=== PATIENT | male | born 1965 | race Caucasian/White ===

== ENCOUNTER 2023-08-15 19:47 | Emergency (ER) | payer OTHER, SELFPAY ==
[2023-08-15 19:53] VITALS: BP 130/89
[2023-08-15 20:15] LABS: % Basophils 0.7 % (0-2); % Eosinophils 1.7 % (0-6); % Immature Granulocytes 0.3 % (0-0.5); % Lymphocytes 24.6 % (20.5-51.1); % Monocytes 7.8 % (1.7-9.3); % Neutrophils 64.9 % (42.2-75.2); Absolute Basophils 0.1 10^3/uL (0-0.2); Absolute Eosinophils 0.1 10^3/uL (0-0.7); Absolute Lymphocytes 1.7 10^3/uL (1.2-3.4); Absolute Monocytes 0.6 10^3/uL (0.1-0.6); Absolute Neutrophils 4.6 10^3/uL (1.4-6.5); Hematocrit 42.3 % (39.0-52.0); Hemoglobin 14.4 g/dL (13.0-18.0); Mean Corpuscular Hgb 28.5 pg (27.0-31.0); Mean Corpuscular Volume 83.6 fL (80.0-94.0); Mean Platelet Volume 9.1 fL (7.4-10.4); Nucleated Red Blood Cells % 0 % (-); Platelet Count 258 10^3/uL (130-400); Red Blood Cell Count 5.06 10^6/uL (4.70-6.10); Red Cell Dist. Width 14.6 % (11.5-14.5); White Blood Cell Count 7.1 10^3/uL (4.8-10.8)
[2023-08-15 20:28] LABS: ALT (SGPT) 15 U/L (0-50); AST (SGOT) 26 U/L (17-59); Albumin 4.5 g/dl (3.5-5.0); Alkaline Phosphatase 78 U/L (38-126); Blood Urea Nitrogen 29 mg/dl (9-20); Calcium 9.8 mg/dl (8.4-10.2); Carbon Dioxide 25 mmol/L (22-30); Chloride 108 mmol/L (98-107); Glucose 130 mg/dl (70-99); Potassium 5.3 mmol/L (3.5-5.1); Sodium 140 mmol/L (135-145); Total Bilirubin 0.9 mg/dl (0.2-1.3); Total Protein 7.5 g/dl (6.3-8.2); eGFR > 60.00
[2023-08-15 20:40] LABS: NT-proBNP 80.3 pg/ml; Troponin I < 0.012 ng/ml
--- NOTE | 2023-08-15 21:05 | ED.GENMED ---
History of Present Illness
General
Chief Complaint: Breathing Problem
Time Seen by Provider: 08/15/23 21:05
Travel History
Have you had any contact with someone who has COVID-19?: No
Do you have any symptoms of coronavirus? Fever > 100 degrees, chills, cough, shortness of breath, sore throat, loss of taste or smell, muscle aches, or headache?: No
History of Present Illness
History of Present Illness:
HPI: Patient presents with sensation that he could not breathe earlier after eating a lot of food. Family members at bedside indicate that it was a massive amount of food 'enough for 10 people'. He was feeling full in his abdomen then developed
shortness of breath and had some dizziness which concerned him enough to come here. While in the waiting room, he burped and overall felt significantly improved and wanted to leave.
EXAM:
GENERAL: Well appearing in no distress, minimally hypertensive, room air sats are normal
HEENT: Moist oral mucosa
CARDIOVASCULAR: No murmurs, normal heart rate, regular rhythm, No chest wall tenderness
PULMONARY: No respiratory distress, breath sounds are clear and equal
ABDOMEN: Soft with no peritoneal signs, no tenderness
NEUROLOGIC: Excellent strength all extremities, no coordination deficits, finger-nose testing normal
PSYCHIATRIC: Appropriate mental status, normal insight and judgement
EXTREMITIES: Nontender, no edema, moves all extremities equally
SKIN: No rash, no lesions
TIME OF INITIAL ENCOUNTER: 9:10 PM
NUMBER AND COMPLEXITY OF PROBLEMS ADDRESSED AT THE ENCOUNTER
� Chronic conditions affecting care: GERD no longer on Zantac
� Acute Exacerbation and/or Progression of Chronic Illness: This is an acute problem
� Differential Diagnosis includes: Binge overeating, ACS very unlikely, GERD exacerbate
AMOUNT AND/OR COMPLEXITY OF DATA TO BE REVIEWED AND ANALYZED
� I performed an independent evaluation of and my interpretation is:
EKG: EKG shows a sinus rhythm rate of 57, no acute ST abnormality, no old to compare
CT:
X-rays:
Laboratory Studies: CBC normal, potassium minimally elevated at 5.3 but creatinine normal, troponin negative, BNP unremarkable.
Other:
� Review of other/old records: Chest x-ray from 2019 was unremarkable
� Clinical information was obtained by an independent historian: I spoke to family members at bedside
� Prescriptions/Medications Considered but not given:
� Further testing considered but not performed:
RISK OF COMPLICATIONS AND/OR MORBIDITY OR MORTALITY OF PATIENT MANAGEMENT
� Social determinants of health affecting care: Lives at home
� Discussion with other providers:
� Escalation of care including admission/observation vs risk of discharge considered: Shortly after arrival, the patient spontaneously felt improved. I did perform a medical screening examination and blood work is unremarkable.
He has virtually no symptoms of time of discharge
Past History
Past History
ED Past Medical History: None
ED Past Surgical History: None
Social History
Tobacco: Non-smoker
Alcohol: None
Personal:
Living: with family
Employment: Employed
Phy Exam
Physical Exam
Physical Exam:
See HPI
Scores
Heart Failure Risk
Heart Failure Risk Score: Not Applicable
Course
Orders/Labs/Results
Orders:
Orders
08/15/23 20:00
Electrocardiogram (*1) Urgent
Reason for Study: Other
Other Reason for Exam: Respiratory Distress
EKG- Treatment ONCE
08/15/23 20:08
Complete Blood Count/With Diff Urgent
Comprehensive Metabolic Panel Urgent
NT-proBNP Urgent
Troponin I Urgent
Abnormal Lab Results
08/15/23
20:08
RDW 14.6 H %
(11.5-14.5)
Potassium 5.3 H mmol/L
(3.5-5.1)
Chloride 108 H mmol/L
(98-107)
BUN 29 H mg/dl
(9-20)
Glucose 130 H mg/dl
(70-99)
08/15/23 20:08
08/15/23 20:08
Vital Signs
Initial and Last Documented VS:
Initial Vital Signs
Temp Pulse Resp BP Pulse Ox
98.1 F 69 24 130/89 99
08/15/23 19:53 08/15/23 19:53 08/15/23 19:53 08/15/23 19:53 08/15/23 19:53
Last Documented Vital Signs
Temp Pulse Resp BP Pulse Ox
98.1 F 69 24 130/89 99
08/15/23 19:53 08/15/23 19:53 08/15/23 19:53 08/15/23 19:53 08/15/23 19:53
*Critical Care Note
Total Time (30-74mins, 75-104mins- exclusive of procedures): Not Applicable
ED Attending Note
-
Portions of this chart may have been created with voice recognition software.� Occasional wrong word or��sound alike� substitutions may have occurred due to the inherent limitations of voice recognition software.
Discharge Plan
Departure
Patient Disposition: Home (Routine Discharge)
Date of Disposition: 08/15/23
Time of Disposition: 21:11
Patient with high blood pressure during this ER visit?: Yes
Discharge Problem:
Shortness of breath
Instructions: Shortness of Breath (Dyspnea) (DC)
Prescriptions:
No Action
No Current Medications
0
Activity Restrictions/Additional Instructions:
Blood work is unremarkable. EKG appears normal. Return here if worse. Consider 2-week course of [id number] omeprazole to help with stomach acid.
Interventions
Interventions:
*Risk Screen - Suicide Last Done: 08/15/23 19:53
*General Assessment Last Done: 08/15/23 21:13
*Neglect/Abuse Screening Last Done: 08/15/23 19:53
ED- Fall Risk Assessment Last Done: 08/15/23 19:53
*ED COVID-19 Vaccine History Last Done: 08/15/23 19:53
ED- Cardiac Assessment Last Done: 08/15/23 21:13
ED- Pulmonary Assessment Last Done: 08/15/23 21:13
Discharge Date and Time
Print Language: INDIAN
[2023-08-15 21:12] VITALS: BP 135/94; BMI 26.5
== END 2023-08-15 21:35 | disposition home or self-care (01) ==
LOC: EMR 19:47
PROVIDERS: EMERGENCY PHYSICIAN Emergency Medicine; FAMILY PHYSICIAN Family Medicine
DX: R06.02 Shortness of breath (principal); R42 Dizziness and giddiness; R03.0 Elevated blood-pressure reading, without diagnosis of hypertension
CPT/HCPCS: 99284; 80053; 83880; 84484; 85025; 93005